=== PATIENT | female | born 1990 | race Caucasian/White ===

== ENCOUNTER → 2017-01-17 | Outpatient (CLI) | payer OTHER ==
[~2017-01-17] MED LIST: AMOX250S5 PO; BCPILLS PO; HYDROXYZINE HCL 10 MG PO
[2017-01-17 12:49] LABS: BLOOD UREA NITROGEN 14 mg/dl (7-18); CREATININE 0.66 mg/dl (0.60-1.20); GLUCOSE 81 mg/dl (70-99)
[2017-01-17 12:50] LABS: ALT/SGPT 35 U/L (12-78); BUN/CREATININE RATIO 21.7 (10-20); CALCIUM 8.6 mg/dl (8.5-10.1); CARBON DIOXIDE 26 mmol/L (21-32); CHLORIDE 106 mmol/L (98-107); POTASSIUM 4.1 mmol/L (3.5-5.1); SODIUM 141 mmol/L (136-145)
[2017-01-17 13:00] LABS: ALB/GLOB RATIO 1.2 (0.9-2); ALKALINE PHOSPHATASE 48 U/L (45-117); AST/SGOT 18 U/L (15-37); THYROID STIMULATING HORMONE 0.932 uIu/ml (0.300-4.500)
== END | disposition home or self-care (01) ==
LOC: C.LAB1850 10:01
PROVIDERS: ATTEND Emergency Medicine Emergency Medical Services
DX: R53.83 Other fatigue (principal)